=== PATIENT | male | born 1990 | race Caucasian/White ===

== ENCOUNTER 2023-06-26 21:57 | Emergency (ER) | payer SELFPAY ==
[~2023-06-26] VITALS: Ht 162.6 cm; Wt 91.6 kg
[2023-06-26 22:09] VITALS: BP 148/106; PULSE 98; RESP 16; TEMP 97.6; O2SAT 99
[2023-06-27 02:53] VITALS: BP 148/106; PULSE 98; RESP 16; TEMP 97.6; O2SAT 99
== END 2023-06-27 01:28 | disposition left against medical advice (07) ==
LOC: MED 21:57
DX: M54.50 Low back pain, unspecified (principal); Z53.21 Procedure and treatment not carried out due to patient leaving prior to being seen by health care provider
CPT/HCPCS: 99281